=== PATIENT | female | born 1990 | race Caucasian/White ===

== ENCOUNTER 2019-06-29 00:47 | Observation (INO) ==
[2019-06-29] MEDS ORDERED: Ondansetron 4 MG/2 ML VIAL IVP PRN (04:06)
[2019-06-29] MEDS ORDERED: Naloxone 0.4 MG/ML INJ IVP PRN (04:06)
[2019-06-29] MEDS ORDERED: 0.9 % Sodium Chloride 1,000 ML IVC SCH (04:15)
[2019-06-29 05:43] LABS: INR 1.1; Prothrombin Time 12.1 Seconds (9.4-12.1)
[2019-06-29 05:45] LABS: Basophils % 0.3 %; Eosinophils % 0.2 %; Hematocrit 36.9 % (35.3-44.9); Hemoglobin 12.7 g/dL (11.5-15.4); Immature Granulocytes % 0.2 % (0-4); Lymphocytes # 1.8 K/mcL (0.6-4.6); Lymphocytes % 16.8 %; Mean Corpuscular HGB Conc 34.4 g/dL (31.6-35.5); Mean Corpuscular Hemoglobin 31.4 pg (28.0-33.3); Mean Corpuscular Volume 91.3 fL (83.0-100.0); Mean Platelet Volume 11.4 fL (9.4-12.4); Monocytes # 0.4 K/mcL (0.0-1.3); Monocytes % 4.1 %; Neutrophils # 8.4 K/mcL (1.6-8.9); Platelet Count 247 K/mcL (140-400); Red Blood Count 4.04 M/mcL (3.82-4.97); Red Cell Distribution Width 11.8 % (11.5-14.5); Segmented Neutrophils % 78.4 %; White Blood Count 10.7 K/mcL (4.3-11.1)
[2019-06-29] MEDS ORDERED: *HR* Heparin 5,000 UNIT/ML VIAL SQ SCH (06:00)
[2019-06-29 06:13] LABS: Alanine Aminotransferase 10 Units/L (7-52); Albumin 3.9 g/dL (3.5-5.7); Albumin/Globulin Ratio 1.2 (1.1-2.2); Alkaline Phosphatase 72 Units/L (34-104); Aspartate Amino Transferase 11 Units/L (13-39); BUN/Creatinine Ratio 15 (6-26); Bilirubin,Total 0.3 mg/dL (0.3-1.0); Blood Urea Nitrogen 10 mg/dL (6-20); Calcium 9.1 mg/dL (8.6-10.3); Carbon Dioxide 23 mEq/L (23-29); Chloride 109 mEq/L (98-107); Globulin 3.3 g/dL (2.4-3.5); Glucose 100 mg/dL (70-105); Magnesium 1.9 mg/dL (1.6-2.6); Osmolality,Calculated 285 (280-300); Sodium 138 mEq/L (136-145); Total Protein 7.2 g/dL (6.4-8.9); eGFR For African Americans > 60 (> 60); eGFR For Non-African Americans > 60 (> 60)
[2019-06-29] MEDS: Ipratropium/Albuterol Neb 3 ML IH SCH ×2 (07:25→11:30)
[2019-06-29] MEDS ORDERED: Lidocaine -MPF 2% 2 ML VIAL ONE (08:11)
[2019-06-29] MEDS ORDERED: *HR* Succinylcholine 200 MG/10 ML VIAL IVP ONE (08:11)
[2019-06-29] MEDS ORDERED: *HR* Propofol 200 MG/20 ML VIAL IVP ONE (08:11)
[2019-06-29] MEDS ORDERED: Ondansetron 4 MG/2 ML VIAL ONE ×2 (08:11→09:28)
[2019-06-29] MEDS ORDERED: Lidocaine -MPF 4% 5 ML AMPUL ONE (08:13)
[2019-06-29] MEDS ORDERED: *HR* Midazolam HCl 2 MG/2 ML VIAL ONE (08:22)
[2019-06-29] MEDS ORDERED: Ringers Solution, Lactated 1,000 ML IVC SCH (08:30)
[2019-06-29] MEDS ORDERED: Dexamethasone 4 MG/ML VIAL ONE (09:28)
[2019-06-29 10:19] VITALS: BP 134/85
== END 2019-06-29 13:01 | disposition home or self-care (01) ==
LOC: 3ANU → SUATTDRO 02:58
PROVIDERS: ADMIT Internal Medicine; ATTEND Family Medicine
PROC: ENDOEBX (2019-06-29 08:00)